=== PATIENT | male | born 1945 | race Two or more races ===

== ENCOUNTER 2021-08-01 18:17 | Inpatient (IN) | payer MEDICAID, OTHER ==
[~2021-08-01] VITALS: Ht 170.2 cm; Wt 81.0 kg
[2021-08-02] VITALS (11 sets, daily range): BP systolic 117–132; BP diastolic 70–82
[2021-08-02 03:24] LABS: Basophils # (auto) 0 10 ^3/uL (0-0.2); Basophils % (auto) 0.2 % (0.0-2.0); Eosinophils # (auto) 0.6 10 ^3/uL (0-0.8); Eosinophils % (auto) 6.6 % (0.0-7.0); Hematocrit 39.7 % (41.0-53.0); Hemoglobin 13.7 g/dL (13.5-17.5); Lymphocytes # (auto) 1.8 10 ^3/uL (0.4-5.4); Lymphocytes % (auto) 20.4 % (10.0-50.0); Mean Corpuscular Hemoglobin 30.8 pg (28.0-32.0); Mean Corpuscular Hgb Conc. 34.6 g/dL (32.0-36.0); Monocytes # (auto) 0.9 10 ^3/uL (0-1.3); Monocytes % (auto) 9.9 % (0.0-12.0); Neutrophils # (auto) 5.6 10 ^3/uL (1.6-8.6); Neutrophils % (auto) 62.9 % (37.0-80.0); Nucleated Red Blood Cells % 0.1 %; Red Blood Cells 4.45 10^6/uL (4.5-5.90); Red Cell Distribution Width 13.4 % (11.8-14.3); White Blood Cell 8.9 10^3/uL (4.4-10.8)
[2021-08-02 03:42] LABS: Albumin 3.7 g/dL (3.4-5.0); Calcium 8.5 mg/dL (8.5-10.1); Potassium 3.6 mmol/L (3.5-5.1)
[2021-08-02 03:44] LABS: BUN/Creatinine Ratio 14.3; Magnesium 2.1 mg/dL (1.6-2.6)
[2021-08-02 03:50] LABS: Bilirubin, Total 0.5 mg/dL (0.2-1.0); Total Protein 7.8 g/dL (6.4-8.2)
[2021-08-02] MEDS ORDERED: MORPHINE SULFATE 4 MG/ML SYR/VIAL IV ONE (05:15)
[2021-08-02] MEDS ORDERED: ENOXAPARIN SOD 80 MG/0.8ML SYRINGE SC ONE (05:15)
[2021-08-02] MEDS ORDERED: ASPirin 81 mg TAB PO ONE (05:15)
[2021-08-02] MEDS ORDERED: NITROGLYCERIN 0.2MG/HR TOPICAL PATCH TD ONE (05:15)
[2021-08-02] MEDS ORDERED: ONDANSETRON HCL 4 MG/2 ML VIAL IV ONE (05:15)
[2021-08-02 07:12] LABS: Urine Bacteria NONE SEEN /hpf (None Seen); Urine Blood Negative /uL (Negative); Urine Specific Gravity 1.008 (1.001-1.035); Urine WBC 1 /hpf (0 - 3)
[2021-08-02] MEDS ORDERED: NITROGLYCERIN 0.4 MG SL TAB SL PRN (09:30)
[2021-08-02] MEDS ORDERED: ONDANSETRON HCL 4 MG/2 ML VIAL IV PRN (09:30)
[2021-08-02] MEDS ORDERED: HEPARIN DRIP/D5W 100UNITS/ML 250 ML IV SCH (09:30)
[2021-08-02] MEDS ORDERED: MORPHINE SULFATE INJECTION 2 MG/ML SYRG IV PRN (09:30)
[2021-08-02] MEDS: SODIUM CHLORIDE 0.9% 1,000 ML IV SCH ×2 (10:02→21:18)
[2021-08-02 10:39] LABS: Basophils # (auto) 0 10 ^3/uL (0-0.2); Basophils % (auto) 0.5 % (0.0-2.0); Eosinophils # (auto) 0.5 10 ^3/uL (0-0.8); Eosinophils % (auto) 7.3 % (0.0-7.0); Hematocrit 39.4 % (41.0-53.0); Hemoglobin 13.2 g/dL (13.5-17.5); Lymphocytes # (auto) 1.8 10 ^3/uL (0.4-5.4); Lymphocytes % (auto) 23.5 % (10.0-50.0); Mean Corpuscular Hemoglobin 29.9 pg (28.0-32.0); Mean Corpuscular Hgb Conc. 33.5 g/dL (32.0-36.0); Monocytes # (auto) 0.9 10 ^3/uL (0-1.3); Monocytes % (auto) 11.4 % (0.0-12.0); Neutrophils # (auto) 4.3 10 ^3/uL (1.6-8.6); Neutrophils % (auto) 57.3 % (37.0-80.0); Red Blood Cells 4.42 10^6/uL (4.5-5.90); Red Cell Distribution Width 13.7 % (11.8-14.3); White Blood Cell 7.5 10^3/uL (4.4-10.8)
[2021-08-02 10:53] LABS: INR 1.08 (0.9-1.15); Partial Thromboplastin Time 31.9 sec (23.6-33.0)
[2021-08-02] MEDS ORDERED: IODIXANOL 320MG/ML 100ML BTL IV ONE (14:02)
[2021-08-02] MEDS ORDERED: LIDOCAINE 2%HCL (LOCAL ANESTH.) INJ 20ML MDV ONE (14:02)
[2021-08-02] MEDS ORDERED: ANGIOMAX 250 MG VIAL IV ONE (14:52)
[2021-08-02] MEDS ORDERED: VERAPAMIL 2.5MG/ML INJ 2ML VIAL IV ONE (14:52)
[2021-08-02] MEDS ORDERED: HEPARIN SODIUM (PORCINE) 5000 UNITS/ML 1ML VIAL ONE (14:52)
[2021-08-02] MEDS ORDERED: fentaNYL CITRATE 100 MCG/2 ML VL ONE (14:52)
[2021-08-02] MEDS ORDERED: SODIUM CHL 0.9% 0 ML ONE (14:53)
[2021-08-02] MEDS ORDERED: MIDAZOLAM HCL 2MG/2ML 2ml VIAL (1mg/ml) ONE (14:53)
[2021-08-02] MEDS ORDERED: LISI-275 PO (20:42)
[2021-08-02] MEDS ORDERED: TIMO0.5S66 EACHEYE (20:42)
[2021-08-02] MEDS ORDERED: SIMV5TAB50 PO (20:42)
[2021-08-02] MEDS ORDERED: LATA0.0019 EACHEYE (20:42)
[2021-08-02] MEDS ORDERED: BRIM0.159 OP (20:42)
[2021-08-02] MEDS: ATORVASTATIN 20 MG TAB PO SCH (21:18)
[2021-08-02] MEDS: ENOXAPARIN SOD 80 MG/0.8ML SYRINGE SC SCH (21:18)
[2021-08-03] MEDS: SODIUM CHLORIDE 0.9% 1,000 ML IV SCH ×3 (02:10→17:51)
[2021-08-03 05:00] VITALS: BP 102/59
[2021-08-03 09:05] VITALS: BP 110/68
[2021-08-03] MEDS: ASPirin 81 mg TAB PO SCH (09:46)
[2021-08-03] MEDS: ENOXAPARIN SOD 80 MG/0.8ML SYRINGE SC SCH ×2 (09:46→21:03)
[2021-08-03 13:00] VITALS: BP 110/68
[2021-08-03 16:15] VITALS: BP 117/77
[2021-08-03] MEDS: ATORVASTATIN 20 MG TAB PO SCH (21:03)
[2021-08-03 22:08] VITALS: BP 97/57
[2021-08-03] MEDS: MORPHINE SULFATE 4 MG/ML SYR/VIAL IV PRN ×2 (22:51→23:26)
[2021-08-04] VITALS (24 sets, daily range): BP systolic 73–139; BP diastolic 47–101
[2021-08-04] MEDS: SODIUM CHLORIDE 0.9% 1,000 ML IV SCH ×2 (00:26→11:30)
[2021-08-04] MEDS: NOREPINEPHRINE 8 MG/250ML KIT 250 ML IV SCH ×2 (02:00→22:45)
[2021-08-04] MEDS ORDERED: AMIODARONE 450mg/250ml AE 250 ML IV ONE (02:57)
[2021-08-04] MEDS ORDERED: AMIODARONE HCL (50 MG/ ML) 3 ML VIAL IV ONE (02:57)
[2021-08-04] MEDS ORDERED: AMIODARONE HCL 150 MG in D5W 5% 100 ML IV ONE (03:30)
[2021-08-04 03:31] LABS: Basophils # (auto) 0.1 10 ^3/uL (0-0.2); Basophils % (auto) 0.8 % (0.0-2.0); Eosinophils # (auto) 0.4 10 ^3/uL (0-0.8); Eosinophils % (auto) 5.2 % (0.0-7.0); Hematocrit 34.7 % (41.0-53.0); Hemoglobin 11.8 g/dL (13.5-17.5); Lymphocytes # (auto) 2.2 10 ^3/uL (0.4-5.4); Lymphocytes % (auto) 26.3 % (10.0-50.0); Mean Corpuscular Hemoglobin 30.4 pg (28.0-32.0); Mean Corpuscular Hgb Conc. 33.9 g/dL (32.0-36.0); Mean Corpuscular Volume 89.5 fL (80.0-100.0); Monocytes % (auto) 11.5 % (0.0-12.0); Neutrophils # (auto) 4.7 10 ^3/uL (1.6-8.6); Neutrophils % (auto) 56.2 % (37.0-80.0); Nucleated Red Blood Cells % 0.2 %; Red Blood Cells 3.88 10^6/uL (4.5-5.90); White Blood Cell 8.4 10^3/uL (4.4-10.8)
[2021-08-04] MEDS ORDERED: DIGOXIN (250MCG/ML) 2 ML AMPULE IV ONE (03:45)
[2021-08-04] MEDS ORDERED: AMIODARONE 450mg/250ml AE 250 ML IV SCH (03:45)
[2021-08-04 03:51] LABS: Albumin 3.2 g/dL (3.4-5.0); Calcium 8.1 mg/dL (8.5-10.1); Magnesium 2.6 mg/dL (1.6-2.6); Potassium 3.7 mmol/L (3.5-5.1)
[2021-08-04 03:57] LABS: BUN/Creatinine Ratio 13.8; Bilirubin, Total 0.7 mg/dL (0.2-1.0); Phosphorus 2.6 mg/dL (2.5-4.90); Total Protein 6.8 g/dL (6.4-8.2)
[2021-08-04] MEDS ORDERED: LACTULOSE 20Gm/30ML SOLN PO PRN (09:30)
[2021-08-04] MEDS: ASPirin 81 mg TAB PO SCH (09:35)
[2021-08-04] MEDS: ENOXAPARIN SOD 80 MG/0.8ML SYRINGE SC SCH ×2 (09:35→22:00)
[2021-08-04] MEDS: AMIODARONE 450mg/250ml AE 250 ML IV SCH ×2 (09:45→23:19)
[2021-08-04] MEDS ORDERED: FUROSEMIDE 40 MG/4 ML VIAL IV ONE (11:00)
[2021-08-04] MEDS: ALBUTEROL SULF 2.5 MG/0.5ML(0.5%) NEB SOLN NEB PRN (14:50)
[2021-08-04] MEDS: LORazepam 2MG/ML-1ML VIAL IV PRN (14:56)
[2021-08-04] MEDS: POTASSIUM CHL 20 Meq TABLET PO SCH (17:44)
[2021-08-04] MEDS: FUROSEMIDE 40 MG/4 ML VIAL IV SCH (17:49)
[2021-08-04] MEDS ORDERED: LORazepam 2MG/ML-1ML VIAL IM ONE (18:00)
[2021-08-04] MEDS ORDERED: LORazepam 2MG/ML-1ML VIAL IV ONE (19:30)
[2021-08-04] MEDS ORDERED: ETOMIDATE (2MG/ML) 20ML VIAL IV ONE (21:43)
[2021-08-04] MEDS ORDERED: SUCCINYLCHOLINE CHLORIDE 20 MG/ML 10ML VIAL IV ONE (21:44)
[2021-08-04] MEDS: fentaNYL Drip 2500mCg/250mlNS 250 ML IV SCH (22:00)
[2021-08-04] MEDS: ATORVASTATIN 20 MG TAB PO SCH (22:00)
[2021-08-04] MEDS: MIDAZOLAM DRIP 50 mg/50mL 50 ML IV SCH (22:00)
[2021-08-04] MEDS ORDERED: fentaNYL Drip 2500mCg/250mlNS 250 ML IV ONE (22:01)
[2021-08-04] MEDS ORDERED: MIDAZOLAM DRIP 50 mg/50mL 50 ML IV ONE (22:01)
[2021-08-04] MEDS ORDERED: NOREPINEPHRINE 8 MG/250ML KIT 250 ML IV ONE (22:28)
[2021-08-04] MEDS ORDERED: FUROSEMIDE INJECTION 10 ML ONE (23:14)
[2021-08-04] MEDS: FUROSEMIDE INJECTION 100 MG in SODIUM CHL 0.9% 100 ML IV SCH (23:33)
[2021-08-05] VITALS (96 sets, daily range): BP systolic 65–131; BP diastolic 40–97
[2021-08-05] MEDS: MIDAZOLAM DRIP 50 mg/50mL 50 ML IV SCH (01:38)
[2021-08-05 04:18] LABS: Basophils # (auto) 0 10 ^3/uL (0-0.2); Basophils % (auto) 0.2 % (0.0-2.0); Eosinophils # (auto) 0 10 ^3/uL (0-0.8); Hematocrit 42.2 % (41.0-53.0); Hemoglobin 13.9 g/dL (13.5-17.5); Lymphocytes # (auto) 1.2 10 ^3/uL (0.4-5.4); Lymphocytes % (auto) 8.1 % (10.0-50.0); Mean Corpuscular Hemoglobin 29.8 pg (28.0-32.0); Mean Corpuscular Hgb Conc. 32.9 g/dL (32.0-36.0); Mean Corpuscular Volume 90.7 fL (80.0-100.0); Monocytes # (auto) 1.8 10 ^3/uL (0-1.3); Monocytes % (auto) 11.8 % (0.0-12.0); Neutrophils % (auto) 79.9 % (37.0-80.0); Red Blood Cells 4.66 10^6/uL (4.5-5.90); Red Cell Distribution Width 13.9 % (11.8-14.3); White Blood Cell 15.1 10^3/uL (4.4-10.8)
[2021-08-05 04:34] LABS: BUN/Creatinine Ratio 16.3; Calcium 8.3 mg/dL (8.5-10.1); Magnesium 2.3 mg/dL (1.6-2.6); Potassium 4.6 mmol/L (3.5-5.1)
[2021-08-05] MEDS: FUROSEMIDE 40 MG/4 ML VIAL IV SCH (06:41)
[2021-08-05] MEDS: FUROSEMIDE INJECTION 100 MG in SODIUM CHL 0.9% 100 ML IV SCH ×2 (07:36→18:50)
[2021-08-05] MEDS: cefTRIAXone 1GM/50ML D5W 50 ML IV SCH (09:00)
[2021-08-05] MEDS: POTASSIUM CHL 20 Meq TABLET PO SCH ×2 (10:00→21:37)
[2021-08-05] MEDS: ENOXAPARIN SOD 80 MG/0.8ML SYRINGE SC SCH ×2 (10:00→21:37)
[2021-08-05] MEDS: ASPirin 81 mg TAB PO SCH (10:00)
[2021-08-05 12:05] LABS: INR 1.31 (0.9-1.15); Partial Thromboplastin Time 36.2 sec (23.6-33.0)
[2021-08-05] MEDS: ACETAMINOPHEN 325 MG TAB PO PRN ×2 (16:44→21:39)
[2021-08-05 16:46] LABS: Calcium 7.7 mg/dL (8.5-10.1); Potassium 3.6 mmol/L (3.5-5.1)
[2021-08-05 17:12] LABS: BUN/Creatinine Ratio 19.2
[2021-08-05] MEDS: fentaNYL Drip 2500mCg/250mlNS 250 ML IV SCH (20:27)
[2021-08-05] MEDS: AMIODARONE HCL 200 MG TAB PO SCH (21:37)
[2021-08-05] MEDS: ATORVASTATIN 20 MG TAB PO SCH (21:37)
[2021-08-06] VITALS (101 sets, daily range): BP systolic 80–118; BP diastolic 34–77
[2021-08-06] MEDS: MIDAZOLAM DRIP 50 mg/50mL 50 ML IV SCH ×3 (02:26→22:25)
[2021-08-06] MEDS: NOREPINEPHRINE 8 MG/250ML KIT 250 ML IV SCH ×3 (02:31→22:28)
[2021-08-06] MEDS: ACETAMINOPHEN 325 MG TAB PO PRN ×2 (06:29→14:47)
[2021-08-06] MEDS: FUROSEMIDE INJECTION 100 MG in SODIUM CHL 0.9% 100 ML IV SCH ×2 (07:32→22:23)
[2021-08-06] MEDS: cefTRIAXone 1GM/50ML D5W 50 ML IV SCH (08:22)
[2021-08-06] MEDS: ASPirin 81 mg TAB PO SCH (09:14)
[2021-08-06] MEDS: POTASSIUM CHL 20 Meq TABLET PO SCH (09:14)
[2021-08-06] MEDS: AMIODARONE HCL 200 MG TAB PO SCH ×2 (09:14→22:22)
[2021-08-06] MEDS: ENOXAPARIN SOD 80 MG/0.8ML SYRINGE SC SCH ×2 (09:14→22:22)
[2021-08-06] MEDS: MIDODRINE HCL 10 MG TAB PO SCH ×2 (11:45→17:32)
[2021-08-06] MEDS: fentaNYL Drip 2500mCg/250mlNS 250 ML IV SCH (12:33)
[2021-08-06] MEDS: POTASSIUM EFFERVESENT TAB 25 MEQ NG SCH (22:22)
[2021-08-06] MEDS: ATORVASTATIN 20 MG TAB PO SCH (22:22)
[2021-08-07] VITALS (83 sets, daily range): BP systolic 78–130; BP diastolic 46–79
[2021-08-07] MEDS: MIDODRINE HCL 10 MG TAB PO SCH ×3 (05:08→17:21)
[2021-08-07] MEDS: MIDAZOLAM DRIP 50 mg/50mL 50 ML IV SCH (07:09)
[2021-08-07 08:11] LABS: Basophils # (auto) 0 10 ^3/uL (0-0.2); Basophils % (auto) 0.2 % (0.0-2.0); Eosinophils # (auto) 0.1 10 ^3/uL (0-0.8); Eosinophils % (auto) 1.1 % (0.0-7.0); Hematocrit 35.5 % (41.0-53.0); Hemoglobin 12.3 g/dL (13.5-17.5); Lymphocytes # (auto) 0.8 10 ^3/uL (0.4-5.4); Lymphocytes % (auto) 6.4 % (10.0-50.0); Mean Corpuscular Hemoglobin 30.7 pg (28.0-32.0); Mean Corpuscular Hgb Conc. 34.5 g/dL (32.0-36.0); Mean Corpuscular Volume 89.1 fL (80.0-100.0); Monocytes # (auto) 1.2 10 ^3/uL (0-1.3); Monocytes % (auto) 9.1 % (0.0-12.0); Neutrophils % (auto) 83.2 % (37.0-80.0); Red Blood Cells 3.99 10^6/uL (4.5-5.90); Red Cell Distribution Width 13.8 % (11.8-14.3); White Blood Cell 13.2 10^3/uL (4.4-10.8)
[2021-08-07] MEDS: cefTRIAXone 1GM/50ML D5W 50 ML IV SCH (08:27)
[2021-08-07 08:38] LABS: Albumin 2.1 g/dL (3.4-5.0); Calcium 7.1 mg/dL (8.5-10.1); Potassium 3.3 mmol/L (3.5-5.1)
[2021-08-07 08:40] LABS: Bilirubin, Total 0.9 mg/dL (0.2-1.0); Total Protein 5.6 g/dL (6.4-8.2)
[2021-08-07] MEDS: POTASSIUM EFFERVESENT TAB 25 MEQ NG SCH ×2 (09:19→20:53)
[2021-08-07] MEDS: ENOXAPARIN SOD 80 MG/0.8ML SYRINGE SC SCH ×2 (09:19→20:53)
[2021-08-07] MEDS: ASPirin 81 mg TAB PO SCH (09:19)
[2021-08-07] MEDS: AMIODARONE HCL 200 MG TAB PO SCH ×2 (09:19→20:53)
[2021-08-07] MEDS: ACETAMINOPHEN 325 MG TAB PO PRN ×2 (13:29→20:55)
[2021-08-07] MEDS: FUROSEMIDE 40 MG/4 ML VIAL IV SCH (17:22)
[2021-08-07] MEDS: ATORVASTATIN 20 MG TAB PO SCH (20:53)
[2021-08-07] MEDS: LORazepam 2MG/ML-1ML VIAL IV PRN (20:54)
[2021-08-07] MEDS: NOREPINEPHRINE 8 MG/250ML KIT 250 ML IV SCH (23:15)
[2021-08-07] MEDS: fentaNYL Drip 2500mCg/250mlNS 250 ML IV SCH (23:15)
[2021-08-08] VITALS (35 sets, daily range): BP systolic 90–158; BP diastolic 50–83
[2021-08-08] MEDS: ALBUTEROL SULF 2.5 MG/0.5ML(0.5%) NEB SOLN NEB PRN
[2021-08-08] MEDS: MIDODRINE HCL 10 MG TAB PO SCH ×3 (06:27→17:20)
[2021-08-08] MEDS: FUROSEMIDE 40 MG/4 ML VIAL IV SCH ×2 (06:28→17:20)
[2021-08-08] MEDS ORDERED: HALOPERIDOL LACTATE 5 MG/ML INJ VIAL IV PRN (07:45)
[2021-08-08] MEDS: cefTRIAXone 1GM/50ML D5W 50 ML IV SCH (08:25)
[2021-08-08 08:42] LABS: Basophils # (auto) 0 10 ^3/uL (0-0.2); Basophils % (auto) 0.3 % (0.0-2.0); Eosinophils # (auto) 0.1 10 ^3/uL (0-0.8); Eosinophils % (auto) 1.1 % (0.0-7.0); Hematocrit 34.2 % (41.0-53.0); Hemoglobin 11.7 g/dL (13.5-17.5); Lymphocytes # (auto) 0.8 10 ^3/uL (0.4-5.4); Mean Corpuscular Hemoglobin 30.7 pg (28.0-32.0); Mean Corpuscular Hgb Conc. 34.2 g/dL (32.0-36.0); Mean Corpuscular Volume 89.7 fL (80.0-100.0); Monocytes # (auto) 1.1 10 ^3/uL (0-1.3); Monocytes % (auto) 10.1 % (0.0-12.0); Neutrophils # (auto) 8.6 10 ^3/uL (1.6-8.6); Neutrophils % (auto) 80.5 % (37.0-80.0); Nucleated Red Blood Cells % 0.1 %; Red Blood Cells 3.81 10^6/uL (4.5-5.90); Red Cell Distribution Width 14.1 % (11.8-14.3); White Blood Cell 10.7 10^3/uL (4.4-10.8)
[2021-08-08 08:59] LABS: BUN/Creatinine Ratio 27.4; Calcium 7.7 mg/dL (8.5-10.1); Potassium 3.6 mmol/L (3.5-5.1)
[2021-08-08] MEDS: ASPirin 81 mg TAB PO SCH (09:33)
[2021-08-08] MEDS: POTASSIUM EFFERVESENT TAB 25 MEQ NG SCH ×2 (09:33→22:49)
[2021-08-08] MEDS: ENOXAPARIN SOD 80 MG/0.8ML SYRINGE SC SCH ×2 (09:34→22:48)
[2021-08-08] MEDS: AMIODARONE HCL 200 MG TAB PO SCH ×2 (09:34→22:49)
[2021-08-08] MEDS: MORPHINE SULFATE 4 MG/ML SYR/VIAL IV PRN (22:48)
[2021-08-08] MEDS: ATORVASTATIN 20 MG TAB PO SCH (22:48)
[2021-08-09] MEDS: LORazepam 2MG/ML-1ML VIAL IV PRN ×2 (00:23→11:15)
[2021-08-09 05:00] VITALS: BP 102/54
[2021-08-09] MEDS: FUROSEMIDE 40 MG/4 ML VIAL IV SCH ×2 (05:29→12:30)
[2021-08-09] MEDS: MIDODRINE HCL 10 MG TAB PO SCH (05:29)
[2021-08-09] MEDS: ACETAMINOPHEN 325 MG TAB PO PRN (06:00)
[2021-08-09 09:00] VITALS: BP 110/62
[2021-08-09] MEDS: cefTRIAXone 1GM/50ML D5W 50 ML IV SCH (09:00)
[2021-08-09] MEDS: AMIODARONE HCL 200 MG TAB PO SCH ×2 (10:00→22:55)
[2021-08-09] MEDS: POTASSIUM EFFERVESENT TAB 25 MEQ NG SCH ×2 (10:00→22:55)
[2021-08-09] MEDS: ENOXAPARIN SOD 80 MG/0.8ML SYRINGE SC SCH ×2 (10:00→22:55)
[2021-08-09] MEDS: ASPirin 81 mg TAB PO SCH (10:00)
[2021-08-09 10:57] LABS: Basophils # (auto) 0 10 ^3/uL (0-0.2); Basophils % (auto) 0.4 % (0.0-2.0); Eosinophils # (auto) 0 10 ^3/uL (0-0.8); Eosinophils % (auto) 0.1 % (0.0-7.0); Hematocrit 34.5 % (41.0-53.0); Hemoglobin 11.7 g/dL (13.5-17.5); Lymphocytes # (auto) 0.9 10 ^3/uL (0.4-5.4); Lymphocytes % (auto) 9.5 % (10.0-50.0); Mean Corpuscular Hemoglobin 30.3 pg (28.0-32.0); Mean Corpuscular Hgb Conc. 33.9 g/dL (32.0-36.0); Mean Corpuscular Volume 89.5 fL (80.0-100.0); Monocytes # (auto) 1.2 10 ^3/uL (0-1.3); Monocytes % (auto) 13.1 % (0.0-12.0); Neutrophils % (auto) 76.9 % (37.0-80.0); Nucleated Red Blood Cells % 0.1 %; Red Blood Cells 3.86 10^6/uL (4.5-5.90); Red Cell Distribution Width 14.2 % (11.8-14.3)
[2021-08-09 11:11] LABS: Potassium 3.5 mmol/L (3.5-5.1)
[2021-08-09 11:24] LABS: BUN/Creatinine Ratio 34.3
[2021-08-09 13:00] VITALS: BP 106/70
[2021-08-09 16:30] VITALS: BP 109/66
[2021-08-09 22:00] VITALS: BP 107/73
[2021-08-09] MEDS: ATORVASTATIN 20 MG TAB PO SCH (22:55)
[2021-08-10] VITALS (9 sets, daily range): BP systolic 81–107; BP diastolic 55–76
[2021-08-10] MEDS: FUROSEMIDE 40 MG/4 ML VIAL IV SCH (10:00)
[2021-08-10] MEDS: ASPirin 81 mg TAB PO SCH (10:05)
[2021-08-10] MEDS: ENOXAPARIN SOD 80 MG/0.8ML SYRINGE SC SCH ×2 (10:05→21:55)
[2021-08-10] MEDS: cefTRIAXone 1GM/50ML D5W 50 ML IV SCH (10:05)
[2021-08-10] MEDS: AMIODARONE HCL 200 MG TAB PO SCH ×2 (10:05→21:55)
[2021-08-10] MEDS: POTASSIUM EFFERVESENT TAB 25 MEQ NG SCH ×2 (10:11→21:55)
[2021-08-10] MEDS ORDERED: NOREPINEPHRINE 8 MG/250ML KIT 250 ML IV SCH (13:30)
[2021-08-10] MEDS: LORazepam 2MG/ML-1ML VIAL IV PRN (16:00)
[2021-08-10] MEDS: ATORVASTATIN 20 MG TAB PO SCH (21:55)
[2021-08-11] VITALS (7 sets, daily range): BP systolic 90–102; BP diastolic 61–96
[2021-08-11] MEDS: LORazepam 2MG/ML-1ML VIAL IV PRN (01:20)
[2021-08-11] MEDS: cefTRIAXone 1GM/50ML D5W 50 ML IV SCH (09:00)
[2021-08-11] MEDS: ASPirin 81 mg TAB PO SCH (10:00)
[2021-08-11] MEDS: FUROSEMIDE 40 MG/4 ML VIAL IV SCH (10:00)
[2021-08-11] MEDS: AMIODARONE HCL 200 MG TAB PO SCH ×2 (10:00→21:07)
[2021-08-11] MEDS: ENOXAPARIN SOD 80 MG/0.8ML SYRINGE SC SCH ×2 (10:00→21:07)
[2021-08-11] MEDS: POTASSIUM EFFERVESENT TAB 25 MEQ NG SCH (10:00)
[2021-08-11 10:42] LABS: BUN/Creatinine Ratio 31.2; Calcium 7.7 mg/dL (8.5-10.1); Potassium 4.4 mmol/L (3.5-5.1)
[2021-08-11] MEDS: ATORVASTATIN 20 MG TAB PO SCH (21:07)
[2021-08-12 08:54] VITALS: BP 99/69
[2021-08-12] MEDS: FUROSEMIDE 40 MG/4 ML VIAL IV SCH (10:05)
[2021-08-12] MEDS: ASPirin 81 mg TAB PO SCH (10:05)
[2021-08-12] MEDS: POTASSIUM EFFERVESENT TAB 25 MEQ NG SCH (10:05)
[2021-08-12] MEDS: ENOXAPARIN SOD 80 MG/0.8ML SYRINGE SC SCH (10:06)
[2021-08-12] MEDS: AMIODARONE HCL 200 MG TAB PO SCH (10:06)
[2021-08-12] MEDS: cefTRIAXone 1GM/50ML D5W 50 ML IV SCH (10:06)
[2021-08-12] MEDS: ALBUTEROL SULF 2.5 MG/0.5ML(0.5%) NEB SOLN NEB PRN (10:30)
[2021-08-12 13:00] VITALS: BP 82/57
[2021-08-12 13:55] VITALS: BP 83/57
[2021-08-12] MEDS ORDERED: metOLazone 5 MG TAB PO ONE (14:00)
[2021-08-12 14:17] VITALS: BP 89/56
[2021-08-12] MEDS ORDERED: PROMETHAZINE W/CODEINE 5 ML ORAL SYRUP PO PRN (16:30)
[2021-08-12 17:00] VITALS: BP 87/55
[2021-08-12] MEDS ORDERED: MIDODRINE HCL 10 MG TAB PO SCH (18:00)
== END 2021-08-12 19:55 | disposition short-term general hospital (02) | DRG 133 ==
LOC: ER 18:20 → TELE 08-02 09:21 → TELE-CENTR 08-02 18:35 → ICU WEST 08-04 19:28 → TELE-CENTR 08-08 22:10 → TELE-WESTW 08-09 09:32
PROVIDERS: ADMIT Internal Medicine; ATTEND Internal Medicine
PROC: 4A023N7 Measurement of Cardiac Sampling and Pressure, Left Heart, Percutaneous Approach (ICD-10-PCS; 2021-08-02)
PROC: B211YZZ Fluoroscopy of Multiple Coronary Arteries using Other Contrast (ICD-10-PCS; 2021-08-02)
PROC: 5A09357 Assistance with Respiratory Ventilation, Less than 24 Consecutive Hours, Continuous Positive Airway Pressure (ICD-10-PCS; principal; 2021-08-04)
PROC: 5A1945Z Respiratory Ventilation, 24-96 Consecutive Hours (ICD-10-PCS; 2021-08-04)
PROC: 0BH17EZ Insertion of Endotracheal Airway into Trachea, Via Natural or Artificial Opening (ICD-10-PCS; 2021-08-04)
PROC: 05HM33Z Insertion of Infusion Device into Right Internal Jugular Vein, Percutaneous Approach (ICD-10-PCS; 2021-08-05)
PROC: B543ZZA Ultrasonography of Right Jugular Veins, Guidance (ICD-10-PCS; 2021-08-05)
PROC: 5A09557 Assistance with Respiratory Ventilation, Greater than 96 Consecutive Hours, Continuous Positive Airway Pressure (ICD-10-PCS; 2021-08-07)
DX: J96.01 Acute respiratory failure with hypoxia (principal); N17.0 Acute kidney failure with tubular necrosis; I21.4 Non-ST elevation (NSTEMI) myocardial infarction; I50.41 Acute combined systolic (congestive) and diastolic (congestive) heart failure; E87.3 Alkalosis; I13.0 Hypertensive heart and chronic kidney disease with heart failure and stage 1 through stage 4 chronic kidney disease, or unspecified chronic kidney disease; E87.1 Hypo-osmolality and hyponatremia; I48.91 Unspecified atrial fibrillation; J98.11 Atelectasis; E11.22 Type 2 diabetes mellitus with diabetic chronic kidney disease; Z20.822 Contact with and (suspected) exposure to COVID-19; I25.10 Atherosclerotic heart disease of native coronary artery without angina pectoris; R74.01 Elevation of levels of liver transaminase levels; N18.9 Chronic kidney disease, unspecified; Z79.899 Other long term (current) drug therapy; Z82.49 Family history of ischemic heart disease and other diseases of the circulatory system
CPT/HCPCS: 36415; 36600; 71045; 74176; 80048; 80053; 81001; 82150; 82805; 82962; 83690; 83735; 83880; 84100; 84484; 85025; 85610; 85730; 86850; 86900; 86901; 87070; 87205; 87426; 93005; 93306; 93458; 94002; 94003; 94640; 94660; 96372; 96374; 96375; 99152; G0378; J0330; J0696; J2250; J2405; J7060; Q9967